=== PATIENT | female | born 1935 | race Two or more races ===

== ENCOUNTER 2021-06-15 13:25 | Emergency (ER) | payer OTHER ==
[~2021-06-15] VITALS: Ht 154.9 cm; Wt 47.2 kg
[2021-06-15] MEDS ORDERED: SODIUM CHLORIDE 0.9% 500 ML IV ONE (14:00)
[2021-06-15] MEDS ORDERED: SODIUM CHLORIDE 0.9% 1,000 ML IV ONE (14:00)
[2021-06-15 15:09] LABS: Basophils # (auto) 0.1 10 ^3/uL (0-0.2); Basophils % (auto) 1.4 % (0.0-2.0); Eosinophils # (auto) 0.2 10 ^3/uL (0-0.8); Hematocrit 38.9 % (36.0-46.0); Hemoglobin 13.3 g/dL (12.2-16.2); Lymphocytes # (auto) 1.8 10 ^3/uL (0.4-5.4); Lymphocytes % (auto) 29.6 % (10.0-50.0); Mean Corpuscular Hemoglobin 31.8 pg (28.0-32.0); Mean Corpuscular Hgb Conc. 34.3 g/dL (32.0-36.0); Mean Corpuscular Volume 92.7 fL (80.0-100.0); Monocytes # (auto) 0.5 10 ^3/uL (0-1.3); Monocytes % (auto) 8.8 % (0.0-12.0); Neutrophils # (auto) 3.4 10 ^3/uL (1.6-8.6); Neutrophils % (auto) 57.2 % (37.0-80.0); Nucleated Red Blood Cells % 0.2 %; Red Blood Cells 4.19 10^6/uL (4.0-5.20); Red Cell Distribution Width 12.6 % (11.8-14.3); White Blood Cell 5.9 10^3/uL (4.4-10.8)
[2021-06-15 15:27] LABS: Albumin 3.8 g/dL (3.4-5.0); Calcium 8.7 mg/dL (8.5-10.1); INR 1.07 (0.9-1.15); Magnesium 2.7 mg/dL (1.6-2.6); Partial Thromboplastin Time 25.7 sec (23.6-33.0); Potassium 3.7 mmol/L (3.5-5.1)
[2021-06-15 15:32] LABS: BUN/Creatinine Ratio 43.6; Bilirubin, Total 0.4 mg/dL (0.2-1.0); Total Protein 7.7 g/dL (6.4-8.2)
[2021-06-15 16:15] LABS: Urine Bacteria NONE SEEN /hpf (None Seen); Urine Blood Negative /uL (Negative); Urine Mucus FEW (None Seen); Urine Specific Gravity 1.028 (1.001-1.035); Urine WBC 3 /hpf (0 - 5)
[2021-06-15] MEDS ORDERED: cefTRIAXone 1GM/50ML D5W 50 ML IV ONE (16:45)
[2021-06-15 17:28] VITALS: BP 125/65
== END 2021-06-15 17:31 | disposition home or self-care (01) ==
LOC: ER 13:25
DX: N39.0 Urinary tract infection, site not specified (principal); R53.1 Weakness; E03.9 Hypothyroidism, unspecified; F03.90 Unspecified dementia, unspecified severity, without behavioral disturbance, psychotic disturbance, mood disturbance, and anxiety; I10 Essential (primary) hypertension; Z86.73 Personal history of transient ischemic attack (TIA), and cerebral infarction without residual deficits
CPT/HCPCS: 36415; 71045; 80053; 81001; 83735; 83880; 84443; 84484; 85025; 85379; 85610; 85730; 93005; 96361; 96365; 99285; J0696; J7030; J7040

== ENCOUNTER 2021-08-29 17:22 | Inpatient (IN) | payer OTHER ==
[~2021-08-29] VITALS: Ht 152.4 cm; Wt 49.0 kg
[2021-08-29 18:15] LABS: Urine Bacteria FEW /hpf (None Seen); Urine Blood Negative /uL (Negative); Urine Mucus FEW (None Seen); Urine Specific Gravity 1.018 (1.001-1.035); Urine WBC 53 /hpf (0 - 5)
[2021-08-29 19:13] LABS: Basophils # (auto) 0.1 10 ^3/uL (0-0.2); Basophils % (auto) 1.3 % (0.0-2.0); Eosinophils # (auto) 0.3 10 ^3/uL (0-0.8); Hematocrit 39.6 % (36.0-46.0); Hemoglobin 13.6 g/dL (12.2-16.2); Lymphocytes # (auto) 2.1 10 ^3/uL (0.4-5.4); Lymphocytes % (auto) 32.5 % (10.0-50.0); Mean Corpuscular Hemoglobin 31.2 pg (28.0-32.0); Mean Corpuscular Hgb Conc. 34.4 g/dL (32.0-36.0); Mean Corpuscular Volume 90.7 fL (80.0-100.0); Monocytes # (auto) 0.6 10 ^3/uL (0-1.3); Monocytes % (auto) 8.5 % (0.0-12.0); Neutrophils # (auto) 3.4 10 ^3/uL (1.6-8.6); Neutrophils % (auto) 52.7 % (37.0-80.0); Nucleated Red Blood Cells % 0.1 %; Red Blood Cells 4.36 10^6/uL (4.0-5.20); Red Cell Distribution Width 13.3 % (11.8-14.3); White Blood Cell 6.5 10^3/uL (4.4-10.8)
[2021-08-29 19:28] LABS: Albumin 3.9 g/dL (3.4-5.0); Calcium 8.7 mg/dL (8.5-10.1); Potassium 3.9 mmol/L (3.5-5.1)
[2021-08-29 19:32] LABS: Bilirubin, Total 0.6 mg/dL (0.2-1.0); Total Protein 7.7 g/dL (6.4-8.2)
[2021-08-29] MEDS ORDERED: cefTRIAXone 1GM/50ML D5W 50 ML IV ONE (22:45)
[2021-08-29] MEDS ORDERED: SODIUM CHLORIDE 0.9% 500 ML IV ONE (23:00)
[2021-08-30] MEDS ORDERED: ONDANSETRON HCL 4 MG/2 ML VIAL IV PRN (00:30)
[2021-08-30] MEDS ORDERED: LABETALOL HCL 5 MG/ML 4ML SYRINGE IV ONE (00:30)
[2021-08-30] MEDS ORDERED: DOCUSATE SOD 100 MG CAP PO PRN (00:30)
[2021-08-30] MEDS ORDERED: HYDROcodone-ACET 5/325MG TAB PO PRN (00:30)
[2021-08-30] MEDS ORDERED: LISINOPRIL 5 MG TAB PO ONE (00:30)
[2021-08-30] MEDS ORDERED: ACETAMINOPHEN 325 MG TAB PO PRN (00:30)
[2021-08-30] MEDS ORDERED: NITROGLYCERIN 0.4 MG SL TAB SL PRN (01:15)
[2021-08-30] MEDS ORDERED: MORPHINE SULFATE INJECTION 2 MG/ML SYRG IV PRN (01:15)
[2021-08-30] MEDS: hydrALAZINE HCL 20 MG/ML VL IV PRN ×2 (01:46→17:44)
[2021-08-30 03:13] VITALS: BP 143/59
[2021-08-30] MEDS ORDERED: ASPI-543 PO (04:27)
[2021-08-30] MEDS ORDERED: CETI10TA2 PO (04:27)
[2021-08-30] MEDS ORDERED: LOSA25TA38 PO (04:27)
[2021-08-30] MEDS ORDERED: FAMO-12 PO (04:27)
[2021-08-30] MEDS ORDERED: QUET50TA PO (04:27)
[2021-08-30] MEDS ORDERED: LEVO50TA7 PO (04:27)
[2021-08-30] MEDS ORDERED: LORA0.5T19 PO ×2 (04:27)
[2021-08-30] MEDS ORDERED: ATO40T PO (04:27)
[2021-08-30] MEDS ORDERED: DONETAB6 PO (04:27)
[2021-08-30 05:00] VITALS: BP 143/59
[2021-08-30] MEDS: SODIUM CHLOR 0.9% PF (SALINE LOCK) 10ML VIAL/SYR IV SCH ×3 (06:12→22:00)
[2021-08-30 07:51] LABS: Basophils # (auto) 0.1 10 ^3/uL (0-0.2); Basophils % (auto) 1.1 % (0.0-2.0); Eosinophils # (auto) 0.1 10 ^3/uL (0-0.8); Hematocrit 38.7 % (36.0-46.0); Hemoglobin 13.7 g/dL (12.2-16.2); Lymphocytes # (auto) 2.1 10 ^3/uL (0.4-5.4); Lymphocytes % (auto) 23.7 % (10.0-50.0); Mean Corpuscular Hemoglobin 32.2 pg (28.0-32.0); Mean Corpuscular Hgb Conc. 35.6 g/dL (32.0-36.0); Mean Corpuscular Volume 90.6 fL (80.0-100.0); Monocytes # (auto) 0.5 10 ^3/uL (0-1.3); Monocytes % (auto) 5.8 % (0.0-12.0); Neutrophils # (auto) 6.1 10 ^3/uL (1.6-8.6); Neutrophils % (auto) 68.4 % (37.0-80.0); Nucleated Red Blood Cells % 0.1 %; Red Blood Cells 4.27 10^6/uL (4.0-5.20); Red Cell Distribution Width 13.4 % (11.8-14.3); White Blood Cell 8.9 10^3/uL (4.4-10.8)
[2021-08-30 08:17] LABS: Albumin 3.6 g/dL (3.4-5.0); Calcium 8.6 mg/dL (8.5-10.1); Potassium 3.7 mmol/L (3.5-5.1)
[2021-08-30 08:21] LABS: BUN/Creatinine Ratio 14.6; Bilirubin, Total 0.5 mg/dL (0.2-1.0); Total Protein 7.4 g/dL (6.4-8.2)
[2021-08-30 09:00] VITALS: BP 133/59
[2021-08-30] MEDS: cefTRIAXone 1GM/50ML D5W 50 ML IV SCH (09:28)
[2021-08-30] MEDS: ENOXAPARIN SOD 30 MG/0.3 ML SYRINGE SC SCH (09:29)
[2021-08-30] MEDS ORDERED: LISINOPRIL 5 MG TAB PO SCH (10:00)
[2021-08-30 13:00] VITALS: BP 154/88
[2021-08-30] MEDS: LORazepam 0.5 MG TAB PO PRN (14:58)
[2021-08-30] MEDS: LEVOTHYROXINE SODIUM 50 MCG TAB PO SCH (14:58)
[2021-08-30 17:00] VITALS: BP 157/81
[2021-08-30 18:44] VITALS: BP 135/80
[2021-08-30] MEDS ORDERED: HALOPERIDOL LACTATE 5 MG/ML INJ VIAL IM PRN (19:00)
[2021-08-30] MEDS: DONEPEZIL HYDROCHLORIDE 5 MG TAB PO SCH (22:00)
[2021-08-30] MEDS: QUEtiapine FUMARATE 25 MG TAB PO SCH (22:00)
[2021-08-31] MEDS: SODIUM CHLOR 0.9% PF (SALINE LOCK) 10ML VIAL/SYR IV SCH ×3 (06:00→22:05)
[2021-08-31] MEDS: LEVOTHYROXINE SODIUM 50 MCG TAB PO SCH (06:11)
[2021-08-31 09:01] VITALS: BP 150/81
[2021-08-31 09:26] LABS: Basophils # (auto) 0.1 10 ^3/uL (0-0.2); Basophils % (auto) 1.2 % (0.0-2.0); Eosinophils # (auto) 0.1 10 ^3/uL (0-0.8); Eosinophils % (auto) 0.6 % (0.0-7.0); Hematocrit 42.9 % (36.0-46.0); Hemoglobin 14.8 g/dL (12.2-16.2); Lymphocytes # (auto) 1.8 10 ^3/uL (0.4-5.4); Lymphocytes % (auto) 19.8 % (10.0-50.0); Mean Corpuscular Hemoglobin 31.7 pg (28.0-32.0); Mean Corpuscular Hgb Conc. 34.6 g/dL (32.0-36.0); Mean Corpuscular Volume 91.6 fL (80.0-100.0); Monocytes # (auto) 0.5 10 ^3/uL (0-1.3); Monocytes % (auto) 5.8 % (0.0-12.0); Neutrophils # (auto) 6.5 10 ^3/uL (1.6-8.6); Neutrophils % (auto) 72.6 % (37.0-80.0); Red Blood Cells 4.68 10^6/uL (4.0-5.20); Red Cell Distribution Width 13.5 % (11.8-14.3)
[2021-08-31] MEDS: FAMOTIDINE 20 MG TAB PO SCH (09:56)
[2021-08-31] MEDS: LOSARTAN POTASSIUM 25 MG TAB PO SCH (09:56)
[2021-08-31] MEDS: ENOXAPARIN SOD 30 MG/0.3 ML SYRINGE SC SCH (09:58)
[2021-08-31 10:07] LABS: Albumin 4.2 g/dL (3.4-5.0); Calcium 9.3 mg/dL (8.5-10.1); Potassium 3.8 mmol/L (3.5-5.1)
[2021-08-31 10:11] LABS: BUN/Creatinine Ratio 14.4; Bilirubin, Total 0.6 mg/dL (0.2-1.0); Total Protein 8.7 g/dL (6.4-8.2)
[2021-08-31 12:38] VITALS: BP 142/78
[2021-08-31 16:34] VITALS: BP 125/70
[2021-08-31] MEDS: cefTRIAXone 1GM/50ML D5W 50 ML IV SCH (18:30)
[2021-08-31] MEDS: LORazepam 0.5 MG TAB PO PRN (21:58)
[2021-08-31] MEDS: DONEPEZIL HYDROCHLORIDE 5 MG TAB PO SCH (21:58)
[2021-08-31] MEDS: QUEtiapine FUMARATE 25 MG TAB PO SCH (21:58)
[2021-08-31 22:00] VITALS: BP 98/50
[2021-09-01 04:55] VITALS: BP 128/72
[2021-09-01] MEDS: SODIUM CHLOR 0.9% PF (SALINE LOCK) 10ML VIAL/SYR IV SCH ×3 (06:25→22:09)
[2021-09-01] MEDS: LEVOTHYROXINE SODIUM 50 MCG TAB PO SCH (06:25)
[2021-09-01 08:00] VITALS: BP 90/57
[2021-09-01] MEDS: FAMOTIDINE 20 MG TAB PO SCH (09:53)
[2021-09-01] MEDS: ENOXAPARIN SOD 30 MG/0.3 ML SYRINGE SC SCH (09:53)
[2021-09-01] MEDS: cefTRIAXone 1GM/50ML D5W 50 ML IV SCH (09:54)
[2021-09-01] MEDS: LOSARTAN POTASSIUM 25 MG TAB PO SCH (10:00)
[2021-09-01] MEDS ORDERED: SODIUM CHLORIDE 0.9% 500 ML IV ONE (12:00)
[2021-09-01 13:00] VITALS: BP 116/60
[2021-09-01] MEDS: SODIUM CHLORIDE 0.9% 1,000 ML IV SCH (14:24)
[2021-09-01 22:01] VITALS: BP 139/66
[2021-09-01] MEDS: DONEPEZIL HYDROCHLORIDE 5 MG TAB PO SCH (22:10)
[2021-09-01] MEDS: QUEtiapine FUMARATE 25 MG TAB PO SCH (22:10)
[2021-09-02] MEDS: SODIUM CHLORIDE 0.9% 1,000 ML IV SCH (01:43)
[2021-09-02 05:00] VITALS: BP 119/54
[2021-09-02] MEDS: SODIUM CHLOR 0.9% PF (SALINE LOCK) 10ML VIAL/SYR IV SCH (06:11)
[2021-09-02] MEDS: LEVOTHYROXINE SODIUM 50 MCG TAB PO SCH (06:11)
[2021-09-02 09:00] VITALS: BP 140/71
[2021-09-02] MEDS: FAMOTIDINE 20 MG TAB PO SCH (09:44)
[2021-09-02] MEDS: cefTRIAXone 1GM/50ML D5W 50 ML IV SCH (09:44)
[2021-09-02] MEDS: LOSARTAN POTASSIUM 25 MG TAB PO SCH (09:45)
[2021-09-02] MEDS: ENOXAPARIN SOD 30 MG/0.3 ML SYRINGE SC SCH (09:46)
[2021-09-02 12:33] VITALS: BP 148/81
[2021-09-02] MEDS ORDERED: LEVO500T31 PO ×2 (12:53)
[2021-09-02 15:35] VITALS: BP 130/80
[2021-09-02 16:30] VITALS: BP 171/69
== END 2021-09-02 16:45 | disposition home or self-care (01) | DRG 689 ==
LOC: ER 17:22 → OVERFLOW 08-30 01:02 → WEST WING 08-30 03:13
PROVIDERS: ADMIT Nurse Practitioner Family; ATTEND Internal Medicine
DX: N39.0 Urinary tract infection, site not specified (principal); G93.41 Metabolic encephalopathy; F03.90 Unspecified dementia, unspecified severity, without behavioral disturbance, psychotic disturbance, mood disturbance, and anxiety; F41.9 Anxiety disorder, unspecified; I10 Essential (primary) hypertension; F32.A Depression, unspecified; I95.9 Hypotension, unspecified; R73.9 Hyperglycemia, unspecified; Z20.822 Contact with and (suspected) exposure to COVID-19; Z86.73 Personal history of transient ischemic attack (TIA), and cerebral infarction without residual deficits; Z87.440 Personal history of urinary (tract) infections
CPT/HCPCS: 36415; 70450; 80053; 81001; 83036; 84484; 85025; 87086; 93005; 96365; 96375; G0378; J0696; J3490

== ENCOUNTER 2021-09-06 10:53 | Inpatient (IN) | payer OTHER ==
[~2021-09-06] VITALS: Ht 160 cm; Wt 45.9 kg
[~2021-09-06 10:53] MED LIST: ASPI-543 PO; ATO40T PO; CETI10TA2 PO; DONETAB6 PO; FAMO-12 PO; LEVO500T31 PO; LEVO50TA7 PO; LORA0.5T19 PO; LOSA25TA38 PO; QUET50TA PO
[2021-09-06 14:30] LABS: Basophils # (auto) 0.1 10 ^3/uL (0-0.2); Basophils % (auto) 0.9 % (0.0-2.0); Eosinophils # (auto) 0.1 10 ^3/uL (0-0.8); Eosinophils % (auto) 0.8 % (0.0-7.0); Hematocrit 39.4 % (36.0-46.0); Hemoglobin 13.7 g/dL (12.2-16.2); Lymphocytes # (auto) 1.5 10 ^3/uL (0.4-5.4); Lymphocytes % (auto) 18.6 % (10.0-50.0); Mean Corpuscular Hemoglobin 31.7 pg (28.0-32.0); Mean Corpuscular Hgb Conc. 34.8 g/dL (32.0-36.0); Mean Corpuscular Volume 91.3 fL (80.0-100.0); Monocytes # (auto) 0.5 10 ^3/uL (0-1.3); Monocytes % (auto) 6.7 % (0.0-12.0); Neutrophils # (auto) 5.7 10 ^3/uL (1.6-8.6); Red Blood Cells 4.32 10^6/uL (4.0-5.20); Red Cell Distribution Width 13.5 % (11.8-14.3); White Blood Cell 7.8 10^3/uL (4.4-10.8)
[2021-09-06 14:49] LABS: Albumin 3.7 g/dL (3.4-5.0); Potassium 4.4 mmol/L (3.5-5.1)
[2021-09-06 14:51] LABS: BUN/Creatinine Ratio 13.7; Calcium 8.5 mg/dL (8.5-10.1); Magnesium 2.4 mg/dL (1.6-2.6)
[2021-09-06 14:54] LABS: Bilirubin, Total 0.5 mg/dL (0.2-1.0); Total Protein 8.2 g/dL (6.4-8.2)
[2021-09-06 19:14] LABS: Urine Bacteria NONE SEEN /hpf (None Seen); Urine Blood Negative /uL (Negative); Urine Specific Gravity 1.005 (1.001-1.035); Urine WBC <1 /hpf (0 - 5)
[2021-09-06] MEDS ORDERED: LORazepam 0.5 MG TAB PO ONE (21:00)
[2021-09-06] MEDS ORDERED: DONEPEZIL HYDROCHLORIDE 5 MG TAB PO ONE (21:00)
[2021-09-06] MEDS ORDERED: LOSARTAN POTASSIUM 25 MG TAB PO ONE (21:00)
[2021-09-07] MEDS ORDERED: LABETALOL HCL 5 MG/ML 4ML SYRINGE IV ONE ×2 (00:15→02:15)
[2021-09-07] MEDS ORDERED: ONDANSETRON HCL 4 MG/2 ML VIAL IV PRN (01:00)
[2021-09-07] MEDS ORDERED: HYDROcodone-ACET 5/325MG TAB PO PRN (01:00)
[2021-09-07] MEDS ORDERED: DOCUSATE SOD 100 MG CAP PO PRN (01:00)
[2021-09-07] MEDS ORDERED: ACETAMINOPHEN 325 MG TAB PO PRN (01:00)
[2021-09-07] MEDS ORDERED: NITROGLYCERIN 0.4 MG SL TAB SL PRN (01:15)
[2021-09-07] MEDS ORDERED: MORPHINE SULFATE INJECTION 2 MG/ML SYRG IV PRN (01:15)
[2021-09-07] MEDS: LORazepam 2MG/ML-1ML VIAL IV PRN (03:55)
[2021-09-07 05:28] VITALS: BP 164/76
[2021-09-07 05:42] VITALS: BP 164/76
[2021-09-07] MEDS: SODIUM CHLOR 0.9% PF (SALINE LOCK) 10ML VIAL/SYR IV SCH ×3 (06:50→22:00)
[2021-09-07] MEDS: LEVOTHYROXINE SODIUM 50 MCG TAB PO SCH (06:51)
[2021-09-07] MEDS: hydrALAZINE HCL 25 MG TAB PO SCH ×3 (06:51→22:00)
[2021-09-07 08:30] VITALS: BP 131/76
[2021-09-07] MEDS ORDERED: ASCORBIC ACID 500 MG TAB PO SCH (10:00)
[2021-09-07] MEDS ORDERED: ZINC SULFATE 220mg CAP or TAB PO SCH (10:00)
[2021-09-07] MEDS: MULTIPLE VITAMIN TAB PO SCH (10:44)
[2021-09-07] MEDS: amLODIPine BESYLATE 5 MG TAB PO SCH (10:44)
[2021-09-07] MEDS: ASPirin 81 mg TAB PO SCH (10:45)
[2021-09-07 11:40] VITALS: BP 138/86
[2021-09-07] MEDS ORDERED: QUEtiapine FUMARATE 25 MG TAB PO ONE (12:45)
[2021-09-07 16:42] VITALS: BP 98/52
[2021-09-07 20:00] VITALS: BP 138/86
[2021-09-07] MEDS: DONEPEZIL HYDROCHLORIDE 5 MG TAB PO SCH (22:00)
[2021-09-07] MEDS: ATORVASTATIN 20 MG TAB PO SCH (22:00)
[2021-09-07] MEDS: QUEtiapine FUMARATE 25 MG TAB PO SCH (22:00)
[2021-09-08] MEDS: LEVOTHYROXINE SODIUM 50 MCG TAB PO SCH (05:37)
[2021-09-08] MEDS: hydrALAZINE HCL 25 MG TAB PO SCH ×3 (05:37→22:34)
[2021-09-08] MEDS: SODIUM CHLOR 0.9% PF (SALINE LOCK) 10ML VIAL/SYR IV SCH ×3 (05:37→22:34)
[2021-09-08 07:29] LABS: Basophils # (auto) 0.1 10 ^3/uL (0-0.2); Basophils % (auto) 1.7 % (0.0-2.0); Eosinophils # (auto) 0.3 10 ^3/uL (0-0.8); Eosinophils % (auto) 4.9 % (0.0-7.0); Hemoglobin 12.3 g/dL (12.2-16.2); Lymphocytes # (auto) 1.6 10 ^3/uL (0.4-5.4); Lymphocytes % (auto) 28.5 % (10.0-50.0); Mean Corpuscular Hemoglobin 31.4 pg (28.0-32.0); Mean Corpuscular Volume 89.6 fL (80.0-100.0); Monocytes # (auto) 0.6 10 ^3/uL (0-1.3); Monocytes % (auto) 9.7 % (0.0-12.0); Neutrophils # (auto) 3.1 10 ^3/uL (1.6-8.6); Neutrophils % (auto) 55.2 % (37.0-80.0); Red Cell Distribution Width 13.4 % (11.8-14.3); White Blood Cell 5.7 10^3/uL (4.4-10.8)
[2021-09-08 07:51] LABS: Potassium 3.4 mmol/L (3.5-5.1)
[2021-09-08 07:59] LABS: Albumin 3.2 g/dL (3.4-5.0); BUN/Creatinine Ratio 18.3; Bilirubin, Total 0.5 mg/dL (0.2-1.0); Calcium 8.3 mg/dL (8.5-10.1)
[2021-09-08 09:00] VITALS: BP 135/70
[2021-09-08] MEDS: ASPirin 81 mg TAB PO SCH (10:55)
[2021-09-08] MEDS: amLODIPine BESYLATE 5 MG TAB PO SCH (10:56)
[2021-09-08] MEDS: MULTIPLE VITAMIN TAB PO SCH (10:57)
[2021-09-08] MEDS: LOSARTAN POTASSIUM 25 MG TAB PO SCH (10:57)
[2021-09-08] MEDS: LORazepam 2MG/ML-1ML VIAL IV PRN (10:58)
[2021-09-08 13:00] VITALS: BP 146/72
[2021-09-08] MEDS ORDERED: POTASSIUM EFFERVESENT TAB 25 MEQ PO ONE (14:30)
[2021-09-08 17:00] VITALS: BP 132/86
[2021-09-08 22:00] VITALS: BP 136/74
[2021-09-08] MEDS: DONEPEZIL HYDROCHLORIDE 5 MG TAB PO SCH (22:35)
[2021-09-08] MEDS: QUEtiapine FUMARATE 25 MG TAB PO SCH (22:35)
[2021-09-08] MEDS: ATORVASTATIN 20 MG TAB PO SCH (22:35)
[2021-09-09 05:00] VITALS: BP 111/57
[2021-09-09] MEDS: SODIUM CHLOR 0.9% PF (SALINE LOCK) 10ML VIAL/SYR IV SCH ×2 (06:00→12:48)
[2021-09-09] MEDS: hydrALAZINE HCL 25 MG TAB PO SCH ×2 (06:00→13:14)
[2021-09-09] MEDS: LEVOTHYROXINE SODIUM 50 MCG TAB PO SCH (06:39)
[2021-09-09] MEDS: LOSARTAN POTASSIUM 25 MG TAB PO SCH (08:45)
[2021-09-09] MEDS: ASPirin 81 mg TAB PO SCH (08:46)
[2021-09-09] MEDS: amLODIPine BESYLATE 5 MG TAB PO SCH (08:46)
[2021-09-09] MEDS: MULTIPLE VITAMIN TAB PO SCH (08:46)
[2021-09-09 09:00] VITALS: BP 110/48
[2021-09-09] MEDS ORDERED: AML5T PO ×2 (11:10)
[2021-09-09] MEDS ORDERED: HYDR-5052 PO ×2 (11:10)
[2021-09-09 12:11] VITALS: BP 110/48
[2021-09-09 13:00] VITALS: BP 112/63
== END 2021-09-09 14:24 | disposition home or self-care (01) | DRG 305 ==
LOC: EDUNIT# 10:53 → ER 10:53 → EDBD 10:53 → TELE-WESTW 09-07 01:15
PROVIDERS: ADMIT Nurse Practitioner Family; ATTEND Internal Medicine
DX: I16.0 Hypertensive urgency (principal); G93.40 Encephalopathy, unspecified; Z87.440 Personal history of urinary (tract) infections; F03.90 Unspecified dementia, unspecified severity, without behavioral disturbance, psychotic disturbance, mood disturbance, and anxiety; R55 Syncope and collapse; E03.9 Hypothyroidism, unspecified; E78.5 Hyperlipidemia, unspecified; F32.A Depression, unspecified; E87.6 Hypokalemia; F41.9 Anxiety disorder, unspecified; Z79.899 Other long term (current) drug therapy; Z86.73 Personal history of transient ischemic attack (TIA), and cerebral infarction without residual deficits
CPT/HCPCS: 36415; 71045; 80053; 80061; 81001; 82607; 83735; 84443; 84484; 85025; 93306; 96374; 96376; 99291; G0378; J3490

== ENCOUNTER 2021-09-25 10:35 | Emergency (ER) | payer OTHER ==
[~2021-09-25] VITALS: Ht 162.6 cm; Wt 68.0 kg
[~2021-09-25 10:35] MED LIST changes: +AML5T PO; +HYDR-5052 PO
[2021-09-25 12:00] LABS: Basophils # (auto) 0.1 10 ^3/uL (0-0.2); Basophils % (auto) 0.5 % (0.0-2.0); Eosinophils # (auto) 0 10 ^3/uL (0-0.8); Eosinophils % (auto) 0.4 % (0.0-7.0); Hematocrit 37.9 % (36.0-46.0); Hemoglobin 13.2 g/dL (12.2-16.2); Lymphocytes % (auto) 10.1 % (10.0-50.0); Mean Corpuscular Hemoglobin 32.2 pg (28.0-32.0); Mean Corpuscular Hgb Conc. 34.9 g/dL (32.0-36.0); Mean Corpuscular Volume 92.2 fL (80.0-100.0); Monocytes # (auto) 0.4 10 ^3/uL (0-1.3); Monocytes % (auto) 3.9 % (0.0-12.0); Neutrophils # (auto) 8.1 10 ^3/uL (1.6-8.6); Neutrophils % (auto) 85.1 % (37.0-80.0); Red Blood Cells 4.11 10^6/uL (4.0-5.20); Red Cell Distribution Width 13.5 % (11.8-14.3); White Blood Cell 9.5 10^3/uL (4.4-10.8)
[2021-09-25 12:16] LABS: BUN/Creatinine Ratio 26.4; Calcium 8.6 mg/dL (8.5-10.1); Potassium 3.8 mmol/L (3.5-5.1)
[2021-09-25 12:18] LABS: Bilirubin, Total 0.6 mg/dL (0.2-1.0); Total Protein 7.9 g/dL (6.4-8.2)
[2021-09-25] MEDS ORDERED: IOHEXOL 300 MG/ML 100ML BOTTLE IJ ONE (13:53)
[2021-09-25] MEDS ORDERED: MAGNESIUM CITRATE SOLUTION 300 ML BTL PO ONE (15:45)
[2021-09-25] MEDS ORDERED: FLEET ENEMA(ADULT) 135 ML PR ONE (15:45)
[2021-09-25] MEDS ORDERED: POLY335015 PO (18:40)
[2021-09-25 19:42] VITALS: BP 124/74
== END 2021-09-25 20:00 | disposition home or self-care (01) ==
LOC: ER 10:35
DX: K59.00 Constipation, unspecified (principal); R94.31 Abnormal electrocardiogram [ECG] [EKG]
CPT/HCPCS: 36415; 74177; 80053; 83605; 85025; 93005; 99285; Q9967

== ENCOUNTER 2021-10-27 07:52 | Inpatient (IN) | payer OTHER ==
[~2021-10-27] VITALS: Ht 162.6 cm; Wt 37.0 kg
[~2021-10-27 07:52] MED LIST changes: +POLY335015 PO
[2021-10-27 10:12] LABS: Basophils # (auto) 0 10 ^3/uL (0-0.2); Basophils % (auto) 0.4 % (0.0-2.0); Eosinophils # (auto) 0 10 ^3/uL (0-0.8); Eosinophils % (auto) 0.2 % (0.0-7.0); Hematocrit 39.2 % (36.0-46.0); Hemoglobin 13.1 g/dL (12.2-16.2); Mean Corpuscular Hemoglobin 30.3 pg (28.0-32.0); Mean Corpuscular Hgb Conc. 33.4 g/dL (32.0-36.0); Mean Corpuscular Volume 90.7 fL (80.0-100.0); Monocytes # (auto) 0.5 10 ^3/uL (0-1.3); Monocytes % (auto) 4.5 % (0.0-12.0); Neutrophils # (auto) 9.6 10 ^3/uL (1.6-8.6); Neutrophils % (auto) 85.9 % (37.0-80.0); Nucleated Red Blood Cells % 0.1 %; Red Blood Cells 4.33 10^6/uL (4.0-5.20); Red Cell Distribution Width 13.6 % (11.8-14.3); White Blood Cell 11.2 10^3/uL (4.4-10.8)
[2021-10-27 10:18] LABS: Albumin 3.7 g/dL (3.4-5.0); Calcium 8.3 mg/dL (8.5-10.1); Potassium 3.8 mmol/L (3.5-5.1)
[2021-10-27 10:22] LABS: BUN/Creatinine Ratio 22.7; Bilirubin, Total 0.6 mg/dL (0.2-1.0); Total Protein 8.1 g/dL (6.4-8.2)
[2021-10-27 11:27] LABS: Urine Bacteria FEW /hpf (None Seen); Urine Blood Negative /uL (Negative); Urine Specific Gravity 1.018 (1.001-1.035); Urine WBC 1 /hpf (0 - 5)
[2021-10-27] MEDS ORDERED: MORPHINE SULFATE INJ 2 MG/ml SYRG IV PRN (14:00)
[2021-10-27] MEDS ORDERED: NITROGLYCERIN 0.4 MG SL TAB SL PRN (14:00)
[2021-10-27] MEDS ORDERED: CALCITONIN 200 UNIT/SPRAY NASAL ONE (14:15)
[2021-10-27] MEDS ORDERED: cefTRIAXone 1GM/50ML D5W 50 ML IV ONE (14:15)
[2021-10-27 14:28] LABS: Cholesterol 98 mg/dL (< 200)
[2021-10-27 14:30] LABS: HDL Cholesterol 58 mg/dL (40-59); LDL Cholesterol 34 mg/dL (< 100); Triglycerides 89 mg/dL (< 150)
[2021-10-27] MEDS ORDERED: HALOPERIDOL LACTATE 5 MG/ML INJ VIAL IM ONE (18:15)
[2021-10-27] MEDS: MORPHINE SULFATE INJ 2 MG/ml SYRG IV PRN (20:24)
[2021-10-27 20:40] VITALS: BP 136/77
[2021-10-28 05:00] VITALS: BP 128/80
[2021-10-28 07:30] LABS: Basophils # (auto) 0.1 10 ^3/uL (0-0.2); Basophils % (auto) 0.7 % (0.0-2.0); Eosinophils # (auto) 0.1 10 ^3/uL (0-0.8); Eosinophils % (auto) 0.7 % (0.0-7.0); Hematocrit 38.7 % (36.0-46.0); Hemoglobin 13.1 g/dL (12.2-16.2); Lymphocytes # (auto) 1.1 10 ^3/uL (0.4-5.4); Lymphocytes % (auto) 12.5 % (10.0-50.0); Mean Corpuscular Hemoglobin 30.8 pg (28.0-32.0); Mean Corpuscular Hgb Conc. 33.8 g/dL (32.0-36.0); Mean Corpuscular Volume 91.1 fL (80.0-100.0); Monocytes # (auto) 0.7 10 ^3/uL (0-1.3); Monocytes % (auto) 7.6 % (0.0-12.0); Neutrophils # (auto) 7.2 10 ^3/uL (1.6-8.6); Neutrophils % (auto) 78.5 % (37.0-80.0); Nucleated Red Blood Cells % 0.1 %; Red Blood Cells 4.24 10^6/uL (4.0-5.20); Red Cell Distribution Width 13.8 % (11.8-14.3); White Blood Cell 9.2 10^3/uL (4.4-10.8)
[2021-10-28 07:49] LABS: Albumin 3.5 g/dL (3.4-5.0); Calcium 8.7 mg/dL (8.5-10.1); Potassium 3.8 mmol/L (3.5-5.1)
[2021-10-28 07:51] LABS: BUN/Creatinine Ratio 28.3
[2021-10-28 07:57] LABS: Bilirubin, Total 0.5 mg/dL (0.2-1.0); Total Protein 7.5 g/dL (6.4-8.2)
[2021-10-28] MEDS: cefTRIAXone 1GM/50ML D5W 50 ML IV SCH (09:34)
[2021-10-28] MEDS: ENOXAPARIN SOD 30 MG/0.3 ML SYRINGE SC SCH (09:34)
[2021-10-28] MEDS: MORPHINE SULFATE INJ 2 MG/ml SYRG IV PRN ×2 (09:35→15:37)
[2021-10-28] MEDS: CALCITONIN 200 UNIT/SPRAY NASAL SCH (10:00)
[2021-10-28 17:00] VITALS: BP 140/74
[2021-10-28 22:00] VITALS: BP 135/68
[2021-10-29] MEDS: MORPHINE SULFATE INJ 2 MG/ml SYRG IV PRN ×2 (01:21→08:50)
[2021-10-29 05:00] VITALS: BP 125/64
[2021-10-29 05:02] LABS: Basophils # (auto) 0.1 10 ^3/uL (0-0.2); Basophils % (auto) 0.5 % (0.0-2.0); Eosinophils # (auto) 0 10 ^3/uL (0-0.8); Eosinophils % (auto) 0.3 % (0.0-7.0); Hematocrit 36.5 % (36.0-46.0); Hemoglobin 12.8 g/dL (12.2-16.2); Lymphocytes # (auto) 1.1 10 ^3/uL (0.4-5.4); Lymphocytes % (auto) 10.4 % (10.0-50.0); Mean Corpuscular Hemoglobin 31.7 pg (28.0-32.0); Mean Corpuscular Volume 90.7 fL (80.0-100.0); Monocytes # (auto) 0.8 10 ^3/uL (0-1.3); Monocytes % (auto) 7.2 % (0.0-12.0); Neutrophils # (auto) 8.8 10 ^3/uL (1.6-8.6); Neutrophils % (auto) 81.6 % (37.0-80.0); Red Blood Cells 4.02 10^6/uL (4.0-5.20); Red Cell Distribution Width 13.5 % (11.8-14.3); White Blood Cell 10.8 10^3/uL (4.4-10.8)
[2021-10-29 05:23] LABS: Calcium 8.6 mg/dL (8.5-10.1); Potassium 3.8 mmol/L (3.5-5.1)
[2021-10-29 05:27] LABS: BUN/Creatinine Ratio 38.2
[2021-10-29] MEDS: cefTRIAXone 1GM/50ML D5W 50 ML IV SCH (08:49)
[2021-10-29] MEDS: ENOXAPARIN SOD 30 MG/0.3 ML SYRINGE SC SCH (08:49)
[2021-10-29] MEDS: CALCITONIN 200 UNIT/SPRAY NASAL SCH (08:50)
[2021-10-29 08:57] VITALS: BP 144/73
[2021-10-29] MEDS ORDERED: LOSARTAN POTASSIUM 25 MG TAB PO ONE (11:00)
[2021-10-29] MEDS ORDERED: LEVOTHYROXINE SODIUM 50 MCG TAB PO ONE (11:00)
[2021-10-29] MEDS ORDERED: CALCIUM W/VIT D (600MG/400IU) TAB PO ONE (11:00)
[2021-10-29] MEDS ORDERED: LIDOCAINE 5% TOPICAL PATCH TOP ONE (11:00)
[2021-10-29 13:00] VITALS: BP 146/78
[2021-10-29 16:36] VITALS: BP 146/82
[2021-10-29] MEDS: CALCIUM W/VIT D (600MG/400IU) TAB PO SCH (18:23)
[2021-10-29] MEDS: traMADol HCL 50 MG TAB PO PRN (18:23)
[2021-10-29 22:00] VITALS: BP 142/76
[2021-10-29] MEDS: DONEPEZIL HYDROCHLORIDE 5 MG TAB PO SCH (22:05)
[2021-10-30 05:00] VITALS: BP 129/59
[2021-10-30] MEDS: LEVOTHYROXINE SODIUM 50 MCG TAB PO SCH (06:06)
[2021-10-30] MEDS: traMADol HCL 50 MG TAB PO PRN ×2 (06:32→16:23)
[2021-10-30] MEDS: cefTRIAXone 1GM/50ML D5W 50 ML IV SCH (08:46)
[2021-10-30] MEDS: CALCIUM W/VIT D (600MG/400IU) TAB PO SCH ×2 (08:46→18:38)
[2021-10-30 09:19] VITALS: BP 123/60
[2021-10-30] MEDS: LOSARTAN POTASSIUM 25 MG TAB PO SCH (09:36)
[2021-10-30] MEDS: LIDOCAINE 5% TOPICAL PATCH TOP SCH (09:37)
[2021-10-30 13:16] VITALS: BP 149/72
[2021-10-30 17:41] VITALS: BP 143/69
[2021-10-30 21:39] VITALS: BP 135/68
[2021-10-30] MEDS: DONEPEZIL HYDROCHLORIDE 5 MG TAB PO SCH (21:59)
[2021-10-31] MEDS: LEVOTHYROXINE SODIUM 50 MCG TAB PO SCH (06:19)
[2021-10-31 09:00] VITALS: BP 158/87
[2021-10-31] MEDS: cefTRIAXone 1GM/50ML D5W 50 ML IV SCH (09:27)
[2021-10-31] MEDS: LOSARTAN POTASSIUM 25 MG TAB PO SCH (09:28)
[2021-10-31] MEDS: LIDOCAINE 5% TOPICAL PATCH TOP SCH (09:28)
[2021-10-31] MEDS: CALCIUM W/VIT D (600MG/400IU) TAB PO SCH ×2 (09:40→18:46)
[2021-10-31 13:00] VITALS: BP 155/75
[2021-10-31 17:00] VITALS: BP 122/62
[2021-10-31] MEDS: MORPHINE SULFATE INJ 2 MG/ml SYRG IV PRN (20:32)
[2021-10-31] MEDS: DONEPEZIL HYDROCHLORIDE 5 MG TAB PO SCH (21:59)
[2021-11-01 05:00] VITALS: BP 133/53
[2021-11-01] MEDS: LEVOTHYROXINE SODIUM 50 MCG TAB PO SCH (06:40)
[2021-11-01] MEDS: CALCIUM W/VIT D (600MG/400IU) TAB PO SCH (08:43)
[2021-11-01] MEDS: cefTRIAXone 1GM/50ML D5W 50 ML IV SCH (08:49)
[2021-11-01 09:54] VITALS: BP 135/66
[2021-11-01] MEDS: LIDOCAINE 5% TOPICAL PATCH TOP SCH (10:00)
[2021-11-01] MEDS: LOSARTAN POTASSIUM 25 MG TAB PO SCH (10:43)
[2021-11-01 13:00] VITALS: BP 126/65
[2021-11-01 14:50] VITALS: BP 126/65
[2021-11-01 17:20] VITALS: BP 123/65
== END 2021-11-01 16:58 | disposition hospice, home (50) | DRG 544 ==
LOC: ER 07:52 → EDBD 07:52 → TELE 14:01 → TELE-CENTR 19:35 → CENTRAL 10-29 14:43
PROVIDERS: ADMIT Registered Nurse; ATTEND Internal Medicine
DX: M80.08XA Age-related osteoporosis with current pathological fracture, vertebra(e), initial encounter for fracture (principal); F03.90 Unspecified dementia, unspecified severity, without behavioral disturbance, psychotic disturbance, mood disturbance, and anxiety; R82.4 Acetonuria; R80.9 Proteinuria, unspecified; N18.2 Chronic kidney disease, stage 2 (mild); F32.A Depression, unspecified; E03.9 Hypothyroidism, unspecified; R26.2 Difficulty in walking, not elsewhere classified; Z20.822 Contact with and (suspected) exposure to COVID-19; E78.5 Hyperlipidemia, unspecified; I12.9 Hypertensive chronic kidney disease with stage 1 through stage 4 chronic kidney disease, or unspecified chronic kidney disease; W18.39XA Other fall on same level, initial encounter; Z91.81 History of falling; Y93.89 Activity, other specified; Z79.82 Long term (current) use of aspirin; Y92.89 Other specified places as the place of occurrence of the external cause; Y99.8 Other external cause status; Z86.73 Personal history of transient ischemic attack (TIA), and cerebral infarction without residual deficits
CPT/HCPCS: 36415; 70450; 71045; 72125; 72131; 72192; 80048; 80053; 80061; 81001; 84443; 85025; 87086; 93005; 93886; 96365; 96372; 97116; 97163; 97530; G0378; J0696